=== PATIENT | female | born 1995 | race Two or more races ===

== ENCOUNTER 2025-05-02 18:48 | Emergency (ER) | payer OTHER ==
[~2025-05-02] VITALS: Ht 157.5 cm; Wt 61.7 kg
[2025-05-02] MEDS ORDERED: PRENATE DHA SO1 EAC1 PO (19:05)
== END 2025-05-02 23:06 | disposition home or self-care (01) ==
LOC: ER 18:48
DX: O47.02 False labor before 37 completed weeks of gestation, second trimester (principal); Z3A.20 20 weeks gestation of pregnancy

== ENCOUNTER 2025-06-23 02:31 | Outpatient (CLI) | payer OTHER ==
[2025-06-23 01:57] VITALS: BP 108/69
[~2025-06-23 02:31] MED LIST: PRENATE DHA SO1 EAC1 PO
[2025-06-23] MEDS ORDERED: RINGERS SOLUTION,LACTATED 1,000 ML IV SCH (02:45)
[2025-06-23 03:05] LABS: URINE APPEARANCE Clear; URINE BILIRRUBIN Negative (NEGATIVE); URINE BLOOD Large; URINE COLOR Yellow; URINE GLUCOSE Negative (NEGATIVE); URINE KETONE Negative (NEGATIVE); URINE LEUKOCYTE Negative; URINE NITRATE Negative; URINE PROTEIN Negative (NEGATIVE); URINE UROBILINOGEN 0.2 E.U./dl
[2025-06-23 03:08] LABS: URINE BACTERIA 747.3 uL (0.0-1933); URINE EPITHELIAL CELLS 8.6 uL (0.0-38.8); URINE RBC 3.0 uL (0.0-20.8); URINE WBC 5.0 uL (0.0-23.2)
[2025-06-23 03:32] LABS: URINE CAST 0.00 uL (0.0-1.40)
[2025-06-23 03:33] LABS: BASO % 0.4 % (0.1-1.2); EOS # 0.12 (0.04-0.54); EOS % 1.7 % (0.7-7.0); LYMPH # 1.38 (1.18-3.74); LYMPH % 19.2 % (19.3-53.1); MEAN PLATELET VOLUME 12.70 fl (9.4-12.4); MONO # 0.64 (0.24-0.82); MONO % 8.9 % (4.7-12.5); NEUT # 4.92 (1.56-6.13); NEUT % 68.3 % (34.0-71.1); RED CELL DISTRIBUTION WIDTH 12.8 % (11.6-14.4)
[2025-06-23 03:40] LABS: INR 0.98
[2025-06-23 06:15] VITALS: BP 117/67; O2SAT 100
[2025-06-23] MEDS ORDERED: SOD FERRIC GLUC COMPLX/SUCROSE 62.5 MG/5 ML AMPUL IV NR (09:30)
[2025-06-23 12:28] VITALS: BP 118/70
== END 2025-06-23 13:01 | disposition home or self-care (01) ==
LOC: OBS/DEL 02:31 → LDR 03:28 → OBS/DEL 03:29
PROVIDERS: ATTEND Obstetrics & Gynecology
DX: O26.853 Spotting complicating pregnancy, third trimester (principal); O26.843 Uterine size-date discrepancy, third trimester; O36.8130 Decreased fetal movements, third trimester, not applicable or unspecified; Z3A.28 28 weeks gestation of pregnancy